=== PATIENT | female | born 1980 | race Caucasian/White ===

== ENCOUNTER 2021-05-20 15:28 | Inpatient (IN) | payer OTHER ==
[2021-05-20] MEDS ORDERED: MACRODANTIN100 M1 PO (16:15)
[2021-05-20] MEDS ORDERED: DAILY VALUE1 EACH PO (16:15)
[2021-05-20 16:30] LABS: BASO # 0.03 K/mm3 (0.02-0.10); HEMATOCRIT 45.1 % (37.0-47.0); HEMOGLOBIN 14.9 g/dL (12.5-16.0); LYMPH# 0.85 K/mm3 (1.50-4.00); MEAN CELL VOLUME 90 fl (78-100); MEAN CORPUSCULAR HEMOGLOBIN 30 pg (27-31); MEAN CORPUSCULAR HGB CONC 33 g/dL (33-37); MEAN PLATELET VOLUME 9.4 fl (7.4-10.4); MONO # 0.94 K/mm3 (0.20-0.80); NEU # 17.53 K/mm3 (1.40-6.50); PLATELET COUNT 244 K/mm3 (130-400); RED BLOOD COUNT 4.99 M/mm3 (4.10-5.30); RED CELL DISTRIBUTION WIDTH 12.3 % (11.5-14.5); WHITE BLOOD COUNT 19.4 K/mm3 (4.8-10.8)
[2021-05-20 16:45] LABS: ALBUMIN 4.7 g/dL (3.5-5.0); POTASSIUM 3.4 mmol/L (3.5-5.1)
[2021-05-20 16:46] LABS: CALCIUM 9.9 mg/dL (8.3-10.5)
[2021-05-20 16:47] LABS: TOTAL PROTEIN 8.1 g/dL (6.4-8.3)
[2021-05-20 16:49] LABS: TOTAL BILIRUBIN 0.8 mg/dL (0.2-1.2)
[2021-05-20 16:53] LABS: URINE APPEARANCE HAZY; URINE BILIRUBIN NEGATIVE (NEGATIVE); URINE COLOR DK YELLOW; URINE GLUCOSE NEGATIVE (NEGATIVE); URINE KETONE 3+ (NEGATIVE); URINE PROTEIN(semi-quant) TRACE (NEGATIVE)
[2021-05-20 16:54] LABS: URINE BLOOD TRACE (NEGATIVE); URINE LEUKOCYTE ESTERASE TRACE (NEGATIVE); URINE NITRATE NEGATIVE (NEGATIVE); URINE UROBILINOGEN NORMAL (NORMAL)
[2021-05-20 20:14] VITALS: BP 147/78
[2021-05-20 22:44] VITALS: BP 112/70
[2021-05-21 02:28] VITALS: BP 131/72
[2021-05-21 06:00] VITALS: BP 137/79
[2021-05-21 06:58] LABS: BASO # 0.03 K/mm3 (0.02-0.10); EOS # 0.02 K/mm3 (0.04-0.40); EOS % 0.1 % (1.0-5.0); HEMATOCRIT 38.7 % (37.0-47.0); HEMOGLOBIN 12.6 g/dL (12.5-16.0); LYMPH# 1.41 K/mm3 (1.50-4.00); MEAN CELL VOLUME 92 fl (78-100); MEAN CORPUSCULAR HEMOGLOBIN 30 pg (27-31); MEAN CORPUSCULAR HGB CONC 33 g/dL (33-37); MEAN PLATELET VOLUME 9.9 fl (7.4-10.4); MONO # 1.24 K/mm3 (0.20-0.80); NEU # 12.31 K/mm3 (1.40-6.50); PLATELET COUNT 197 K/mm3 (130-400); RED BLOOD COUNT 4.22 M/mm3 (4.10-5.30); RED CELL DISTRIBUTION WIDTH 12.2 % (11.5-14.5)
[2021-05-21 07:07] LABS: POTASSIUM 4.3 mmol/L (3.5-5.1)
[2021-05-21 07:08] LABS: CALCIUM 8.1 mg/dL (8.3-10.5)
[2021-05-21 09:49] VITALS: BP 126/73
[2021-05-21 14:02] VITALS: BP 155/80
[2021-05-21 17:33] VITALS: BP 127/87
[2021-05-21 21:52] VITALS: BP 138/82
[2021-05-22 02:01] VITALS: BP 142/81; BP 160/64
[2021-05-22 05:45] VITALS: BP 136/82; BP 163/70
[2021-05-22 07:23] LABS: BASO # 0.02 K/mm3 (0.02-0.10); EOS # 0.03 K/mm3 (0.04-0.40); EOS % 0.3 % (1.0-5.0); HEMATOCRIT 37.1 % (37.0-47.0); HEMOGLOBIN 12.4 g/dL (12.5-16.0); MEAN CELL VOLUME 89 fl (78-100); MEAN CORPUSCULAR HEMOGLOBIN 30 pg (27-31); MEAN CORPUSCULAR HGB CONC 33 g/dL (33-37); MEAN PLATELET VOLUME 10.4 fl (7.4-10.4); MONO # 0.89 K/mm3 (0.20-0.80); NEU # 7.79 K/mm3 (1.40-6.50); PLATELET COUNT 210 K/mm3 (130-400); RED BLOOD COUNT 4.15 M/mm3 (4.10-5.30); WHITE BLOOD COUNT 10.3 K/mm3 (4.8-10.8)
[2021-05-22 07:24] LABS: ALBUMIN 3.2 g/dL (3.5-5.0)
[2021-05-22 07:25] LABS: POTASSIUM 3.7 mmol/L (3.5-5.1)
[2021-05-22 07:26] LABS: CALCIUM 8.2 mg/dL (8.3-10.5)
[2021-05-22 07:27] LABS: TOTAL PROTEIN 5.8 g/dL (6.4-8.3)
[2021-05-22 07:29] LABS: TOTAL BILIRUBIN 0.4 mg/dL (0.2-1.2)
[2021-05-22] MEDS ORDERED: ZOFRAN ODT4 MG PO (09:44)
[2021-05-22] MEDS ORDERED: CEPHALEXIN500 M1 PO (09:44)
== END 2021-05-22 10:00 | disposition home or self-care (01) | DRG 872 ==
LOC: ED 15:28 → MED/SURG 19:04
PROVIDERS: Family Medicine; ADMIT Physician Assistant
DX: A41.9 Sepsis, unspecified organism (principal); N12 Tubulo-interstitial nephritis, not specified as acute or chronic; E87.6 Hypokalemia; Z20.822 Contact with and (suspected) exposure to COVID-19
CPT/HCPCS: J0696; J1650; J1885; J3010; J3480; J7030; Q9967

== ENCOUNTER → 2021-07-21 | Outpatient (CLI) | payer OTHER ==
[~2021-07-21] MED LIST: CEPHALEXIN500 M1 PO; DAILY VALUE1 EACH PO; MACRODANTIN100 M1 PO; ZOFRAN ODT4 MG PO
[2021-07-21 08:04] LABS: BASO # 0.04 K/mm3 (0.02-0.10); EOS # 0.09 K/mm3 (0.04-0.40); EOS % 1.6 % (1.0-5.0); HEMATOCRIT 43.6 % (37.0-47.0); HEMOGLOBIN 14.5 g/dL (12.5-16.0); LYMPH# 2.36 K/mm3 (1.50-4.00); MEAN CELL VOLUME 92 fl (78-100); MEAN CORPUSCULAR HEMOGLOBIN 31 pg (27-31); MEAN CORPUSCULAR HGB CONC 33 g/dL (33-37); MEAN PLATELET VOLUME 9.6 fl (7.4-10.4); NEU # 2.47 K/mm3 (1.40-6.50); PLATELET COUNT 253 K/mm3 (130-400); RED BLOOD COUNT 4.75 M/mm3 (4.10-5.30); RED CELL DISTRIBUTION WIDTH 12.9 % (11.5-14.5); WHITE BLOOD COUNT 5.5 K/mm3 (4.8-10.8)
[2021-07-21 08:44] LABS: POTASSIUM 4.2 mmol/L (3.5-5.1)
[2021-07-21 08:45] LABS: ALBUMIN 4.4 g/dL (3.5-5.0)
[2021-07-21 08:46] LABS: CALCIUM 9.4 mg/dL (8.3-10.5)
[2021-07-21 08:47] LABS: TOTAL PROTEIN 7.1 g/dL (6.4-8.3)
[2021-07-21 08:49] LABS: TOTAL BILIRUBIN 1.8 mg/dL (0.2-1.2)
== END ==
LOC: LAB 07:39
PROVIDERS: Physician Assistant
DX: Z00.00 Encounter for general adult medical examination without abnormal findings (principal); Z13.228 Encounter for screening for other metabolic disorders; N39.0 Urinary tract infection, site not specified; K90.9 Intestinal malabsorption, unspecified; Z86.32 Personal history of gestational diabetes

== ENCOUNTER → 2023-11-01 | Outpatient (CLI) | payer OTHER ==
[2023-11-01 09:19] LABS: BASO # 0.05 K/mm3 (0.02-0.10); EOS # 0.05 K/mm3 (0.04-0.40); HEMATOCRIT 46.1 % (37.0-47.0); HEMOGLOBIN 15.4 g/dL (12.5-16.0); LYMPH# 1.74 K/mm3 (1.50-4.00); MEAN CELL VOLUME 91 fl (78-100); MEAN CORPUSCULAR HEMOGLOBIN 30 pg (27-31); MEAN CORPUSCULAR HGB CONC 33 g/dL (33-37); MEAN PLATELET VOLUME 9.5 fl (7.4-10.4); MONO # 0.39 K/mm3 (0.20-0.80); NEU # 2.56 K/mm3 (1.40-6.50); PLATELET COUNT 241 K/mm3 (130-400); RED BLOOD COUNT 5.08 M/mm3 (4.10-5.30); WHITE BLOOD COUNT 4.8 K/mm3 (4.8-10.8)
[2023-11-01 09:25] LABS: ALBUMIN 4.9 g/dL (3.5-5.0)
[2023-11-01 09:26] LABS: CALCIUM 9.6 mg/dL (8.3-10.5)
[2023-11-01 09:27] LABS: TOTAL PROTEIN 7.5 g/dL (6.4-8.3)
[2023-11-01 09:29] LABS: TOTAL BILIRUBIN 0.8 mg/dL (0.2-1.2)
== END ==
LOC: LAB 09:03
PROVIDERS: Physician Assistant
DX: Z13.220 Encounter for screening for lipoid disorders (principal); K90.9 Intestinal malabsorption, unspecified; R63.4 Abnormal weight loss

== ENCOUNTER 2024-08-09 16:04 | Emergency (ER) | payer OTHER ==
[~2024-08-09] VITALS: Ht 157.5 cm; Wt 46.3 kg
[2024-08-09] MEDS ORDERED: VITAMIN D PO (16:15)
[2024-08-09] MEDS ORDERED: NEXIUM20 MG PO (16:15)
[2024-08-09] MEDS ORDERED: Ketorolac 30 MG/ML VIAL IV ONE (16:15)
[2024-08-09 16:21] LABS: BASO # 0.05 K/mm3 (0.02-0.10); EOS % 1.6 % (1.0-5.0); HEMATOCRIT 42.4 % (37.0-47.0); HEMOGLOBIN 14.3 g/dL (12.5-16.0); LYMPH# 2.45 K/mm3 (1.50-4.00); MEAN CELL VOLUME 89 fl (78-100); MEAN CORPUSCULAR HEMOGLOBIN 30 pg (27-31); MEAN CORPUSCULAR HGB CONC 34 g/dL (33-37); MONO # 0.64 K/mm3 (0.20-0.80); PLATELET COUNT 244 K/mm3 (130-400); RED BLOOD COUNT 4.75 M/mm3 (4.10-5.30); RED CELL DISTRIBUTION WIDTH 11.8 % (11.5-14.5); WHITE BLOOD COUNT 6.3 K/mm3 (4.8-10.8)
[2024-08-09 16:25] LABS: ALBUMIN 4.8 g/dL (3.5-5.0)
[2024-08-09 16:27] LABS: CALCIUM 9.6 mg/dL (8.3-10.5)
[2024-08-09 16:28] LABS: TOTAL PROTEIN 7.6 g/dL (6.4-8.3)
[2024-08-09 16:30] LABS: TOTAL BILIRUBIN 0.8 mg/dL (0.2-1.2)
[2024-08-09] MEDS ORDERED: LORazepam 0.5 MG TABLET PO ONE ×2 (17:15)
[2024-08-09 17:30] VITALS: BP 167/102
[2024-08-09] MEDS ORDERED: Acetaminophen 500 MG TAB PO ONE (17:45)
[2024-08-09] MEDS ORDERED: hydrOXYzine HCl 25 MG TAB PO ONE ×2 (18:15→19:00)
[2024-08-09] MEDS ORDERED: HYDROXYZINE PAM50 M2 PO (18:54)
[2024-08-09] MEDS ORDERED: ZOFRAN ODT4 MG PO (18:54)
[2024-08-09] MEDS ORDERED: Home Ondansetron ODT 4 MG #2 ODT/PACK PO ONE (19:00)
== END 2024-08-09 19:15 | disposition home or self-care (01) ==
LOC: ED 16:04
PROVIDERS: Physician Assistant
DX: I10 Essential (primary) hypertension (principal); E86.0 Dehydration
CPT/HCPCS: J1885; Q0177